=== PATIENT | male | born 1980 | race Caucasian/White ===

== ENCOUNTER 2020-10-11 10:27 | Emergency (ER) | payer SELFPAY ==
[~2020-10-11] VITALS: Ht 172.7 cm; Wt 84.1 kg
[2020-10-11] MEDS ORDERED: LIDOCAINE 2% 5 ML JELLY TP ONE (12:45)
[2020-10-11] MEDS ORDERED: LIDOCAINE 1% 10 ML VIAL SQ ONE (13:00)
[2020-10-11] MEDS ORDERED: TraMADol HCL 50 MG TABLET PO ONE (14:00)
[2020-10-11 14:44] VITALS: BP 120/78
== END 2020-10-11 14:45 | disposition home or self-care (01) ==
LOC: EMS 10:30
DX: L02.512 Cutaneous abscess of left hand (principal); F17.210 Nicotine dependence, cigarettes, uncomplicated
CPT/HCPCS: 10060; 99283; J3490